=== PATIENT | male | born 1970 | race Caucasian/White ===

== ENCOUNTER 2016-11-01 07:11 | Emergency (ER) | payer OTHER ==
[~2016-11-01] VITALS: Ht 172.7 cm; Wt 83.0 kg
[2016-11-01 07:14] VITALS: BP 186/83
--- NOTE | 2016-11-01 07:28 | ED GI/GU/ABDOMINAL COMPLAINT ---
History of Present Illness General Chief Complaint: Abdominal Pain/Flank Pain Stated Complaint: ABDOMINAL PAIN Source: patient, old records Exam Limitations: no limitations Vital Signs & Intake/Output Vital Signs & Intake/Output Vital Signs Date Time Temp Pulse Resp B/P Pulse O2 O2 Flow FiO2 Ox Delivery Rate 11/01 0746 97 Room Air Room Air 11/01 713 96.8 54 26 186/83 100 Room Air Room Air Allergies Coded Allergies: No Known Allergies (11/01/16) Reconcile Medications No Known Home Medications Triage Note: TRIAGE: 46 Y/O MALE WITH PMHX OF IBS, KIDNEY STONES, GALLSTONES PRESENTS C/O 07/21 RIGHT SIDED ABDOMINAL PAIN SINCE LAST NIGHT-0100 THIS MORNING. REPORTS "I ATE CHIPS WITH SALSA AND GUACAMOLE AND THEN I ATE A BANANA." PATIENT EXHIBITING RHYTHMIC BREATHING TECHNIQUES IN TRIAGE. PATIENT DIRECTLY TO ROOM #3. Triage Nurses Notes Reviewed? yes HPI: Patient states that last night he had chips and salsa and then went to sleep. Patient woke up with severe stabbing and pinching right upper quadrant pain. Patient states that he has a known history of a gallstone. There is nausea. There is no vomiting. There are no fevers or chills. There is no difficulty breathing or swallowing. There is no chest pain. There is no shortness breath. There is no radiation of pain. The pain is 10 out of 10. There are no aggravating or mitigating factors. Past History Travel History Traveled to [place] past 21 day No Medical History Any Pertinent Medical History? see below for history Gastrointestinal: irritable bowel syndrome Hepatic: cholelithiasis Renal: nephrolithiasis Surgical History Surgical History: non-contributory Psychosocial History What is your primary language Kinyarwanda Tobacco Use: Never used ETOH Use: occasional use Illicit Drug Use: denies illicit drug use Family History Hx Contributory? No Review of Systems Review of Systems Constitutional: Reports: no symptoms. EENTM: Reports: no symptoms. Respiratory: Reports: no symptoms. Cardiovascular: Reports: no symptoms. GI: Reports: see HPI, abdominal pain, nausea. Genitourinary: Reports: no symptoms. Musculoskeletal: Reports: no symptoms. Skin: Reports: no symptoms. Neurological/Psychological: Reports: no symptoms. Hematologic/Endocrine: Reports: no symptoms. Immunologic/Allergic: Reports: no symptoms. All Other Systems: Reviewed and Negative Physical Exam Physical Exam General Appearance: well developed/nourished, alert, awake, moderate distress Head: atraumatic Eyes: Bilateral: PERRL, EOMI, other (ANICTERIC). Ears, Nose, Throat, Mouth: hearing grossly normal, DRY MUCOSA Neck: normal inspection, supple, full range of motion Respiratory: normal breath sounds, chest non-tender, no respiratory distress, lungs clear Cardiovascular: regular rate/rhythm, normal peripheral pulses Gastrointestinal: normal bowel sounds, soft, no organomegaly, guarding, tenderness Back: normal inspection, normal range of motion Extremities: normal range of motion Neurologic/Psych: no motor/sensory deficits, awake, alert, oriented x 3, normal gait, normal mood/affect Skin: intact, normal color, warm/dry Core Measures ACS in differential dx? No Severe Sepsis Present: No Septic Shock Present: No Progress Differential Diagnosis: biliary colic, cholecystitis, diverticulitis, gastritis, hepatitis, ischemic bowel, inflamm bowel dis, pancreatitis Plan of Care: Orders Procedure Date/time Status Telemetry/Light Bulb Tester 11/01 726 Active TROPONIN LEVEL 11/01 726 Complete LIPASE 11/01 726 Complete COMPREHENSIVE METABOLIC PANEL 11/01 726 Complete CBC WITHOUT DIFFERENTIAL 11/01 726 Complete AMYLASE 11/01 726 Complete EKG 11/01 726 Active Laboratory Tests 11/01/16 0735: Anion Gap 14, Estimated GFR > 60, BUN/Creatinine Ratio 15.0, Glucose 138 H, Calcium 9.7, Total Bilirubin 0.5, AST 31, ALT 60, Alkaline Phosphatase 75, Troponin I < 0.01, Total Protein 7.2, Albumin 4.2, Globulin 3.0, Albumin/ Globulin Ratio 1.4, Amylase 32, Lipase 143, CBC w Diff NO MAN DIFF REQ, RBC 4.81 , MCV 84.8, MCH 28.6, RDW 12.4, MPV 9.4, Gran % 70.2, Lymphocytes % 17.4 L, Monocytes % 7.0, Eosinophils % 5.1 H, Basophils % 0.3, Absolute Granulocytes 7.3 H, Absolute Lymphocytes 1.8, Absolute Monocytes 0.7 H, Absolute Eosinophils 0.5, Absolute Basophils 0, PUBS MCHC 33.7 Diagnostic Imaging: Viewed by Me: Ultrasound. Discussed w/RAD: Ultrasound. Radiology Impression: PATIENT: DAVID HOWARD PRESENT AGE: 46 PATIENT ACCOUNT NO: [id number] : 70 LOCATION: [facility] ORDERING PHYSICIAN: ALEXSANDER PENNY MD SERVICE DATE: 11/01/16 EXAM TYPE: US - US-LIMITED ABDOMEN EXAMINATION: US ABDOMEN LIMITED CLINICAL INFORMATION: Right upper quadrant pain.. COMPARISON: None TECHNIQUE: Real-time imaging of the right upper quadrant abdominal viscera. FINDINGS: PANCREAS: Largely obscured by overlapping bowel gas. LIVER: The liver demonstrates normal size, contour and generalized increase in echogenicity. No focal lesion or intrahepatic biliary duct dilatation. GALLBLADDER: A 2.7 cm shadowing gallstone is seen. The gallbladder is physiologically distended without evidence of stones , sludge, polyps, wall thickening or pericholecystic fluid. COMMON BILE DUCT: Normal in caliber measuring 0.7 cm in diameter. RIGHT KIDNEY: Normal. No hydronephrosis. No renal calculi or focal parenchymal lesions. The kidney measures 9.5 cm in maximum dimension. FREE FLUID: None. IMPRESSION: 1. There is cholelithiasis, without cholecystitis or choledocholithiasis. 2. There is generalized increase in hepatic echotexture, consistent with fatty infiltration or hepatocellular disease. Please correlate clinically. No focal hepatic mass or intrahepatic biliary dilatation is seen. 3. Limited ultrasound examination of the pancreas. DICTATED BY: ANGELA BINGHAM MD DATE/TIME DICTATED:11/01/16899 VISUALIZATION DEVELOPER:BETO DATE/TIME TRANSCRIBED:11/01/16899 CONFIDENTIAL, DO NOT COPY WITHOUT APPROPRIATE AUTHORIZATION. <Electronically signed in Other Vendor System> SIGNED BY: ANGELA BINGHAM MD 11/01/16904 Initial ED EKG: none Comments: No relief from the GI cocktail or IV Toradol. Patient will be given 4 mg of IV morphine. Patient required 2 doses of IV morphine however he is feeling much better. Lab results and ultrasound results have been discussed with the patient. Questions have been answered. Patient will be stable for discharge once the morphine wears off. Patient did drive here. Departure Departure Disposition: HOME OR SELF CARE Condition: Stable Clinical Impression Primary Impression: Biliary colic Referrals: [facility]OR[facility],RACHEL Carrillo. UNKNOWN (PCP/Family) Additional Instructions: FOLLOW UP WITH DR. BENTLEY ABOUT YOUR GALL STONE RETURN IF SYMPTOMS WORSEN OR FOR ANY CONCERNS Departure Forms: Customer Survey General Discharge Information Prescriptions: Current Visit Scripts No Known Home Medications
[2016-11-01 08:14] LABS: ABSOLUTE BASOPHIL COUNT 0 /CUMM (0.0-0.2); ABSOLUTE EOSINOPHIL COUNT 0.5 /CUMM (0.0-0.7); ABSOLUTE GRANULOCYTE CT 7.3 /CUMM (1.4-6.5); ABSOLUTE LYMPH COUNT 1.8 /CUMM (1.2-3.4); ABSOLUTE MONOCYTE COUNT 0.7 /CUMM (0.10-0.60); BASOPHIL % 0.3 % (0.0-2.0); EOSINOPHIL % 5.1 % (0-5); GRANULOCYTE % 70.2 % (42.2-75.2); HEMATOCRIT 40.8 % (42-52); MEAN CORPUSCULAR HGB 28.6 PG (27.0-31.0); MEAN CORPUSCULAR HGB CONC 33.7 G/DL (33.0-37.0); MEAN CORPUSCULAR VOLUME 84.8 FL (80.0-94.0); MEAN PLATELET VOLUME 9.4 FL (7.4-10.4); PLATELET COUNT 238 /CUMM (130-400); RBC DISTRIBUTION WIDTH 12.4 % (11.5-14.5); RED BLOOD CELL CT 4.81 /CUMM (4.70-6.10); WHITE BLOOD CELL COUNT 10.4 /CUMM (4.8-10.8)
--- NOTE | 2016-11-01 09:05 | ULTRASOUND REPORT ---
EXAMINATION: US ABDOMEN LIMITED CLINICAL INFORMATION: Right upper quadrant pain.. COMPARISON: None TECHNIQUE: Real-time imaging of the right upper quadrant abdominal viscera. FINDINGS: PANCREAS: Largely obscured by overlapping bowel gas. LIVER: The liver demonstrates normal size, contour and generalized increase in echogenicity. No focal lesion or intrahepatic biliary duct dilatation. GALLBLADDER: A 2.7 cm shadowing gallstone is seen. The gallbladder is physiologically distended without evidence of stones, sludge, polyps, wall thickening or pericholecystic fluid. COMMON BILE DUCT: Normal in caliber measuring 0.7 cm in diameter. RIGHT KIDNEY: Normal. No hydronephrosis. No renal calculi or focal parenchymal lesions. The kidney measures 9.5 cm in maximum dimension. FREE FLUID: None. IMPRESSION: 1. There is cholelithiasis, without cholecystitis or choledocholithiasis. 2. There is generalized increase in hepatic echotexture, consistent with fatty infiltration or hepatocellular disease. Please correlate clinically. No focal hepatic mass or intrahepatic biliary dilatation is seen. 3. Limited ultrasound examination of the pancreas.
== END 2016-11-01 09:51 ==
LOC: ERH 07:11
PROVIDERS: Emergency Medicine
DX: K80.50 Calculus of bile duct without cholangitis or cholecystitis without obstruction (principal)
CPT/HCPCS: 93005; 93010; 96361; 96374; 96375; 96376; J1885